=== PATIENT | male | born 1970 | race Caucasian/White ===

== ENCOUNTER 2017-08-26 12:37 | Emergency (ER) | payer MEDICARE, OTHER ==
[2017-08-26] MEDS: IBUPROFEN 600 MG TAB PO (14:18)
[2017-08-26] MEDS: ACETAMINOPHEN 325 MG TAB PO (14:18)
== END 2017-08-26 17:15 | disposition home or self-care (01) ==
LOC: FTE 12:37
DX: R05 Cough (principal); K08.89 Other specified disorders of teeth and supporting structures; I10 Essential (primary) hypertension
CPT/HCPCS: 71045; 87070; 87400; 87880; 99284-25